=== PATIENT | female | born 1955 | race Caucasian/White ===

== ENCOUNTER 2020-02-10 10:53 | Day surgery (SDC) | payer BC, OTHER ==
[2020-02-10] MEDS ORDERED: Lidocaine 2% 5 ML SDV INJECT ONE (12:00)
[2020-02-10] MEDS ORDERED: Iopamidol 200-M 10 ML vial ITHECAL ONE (12:00)
[2020-02-10] MEDS ORDERED: Betamethasone Acetate/Betamethasone Sod Phosphate 30 MG/5 ML MDV EPIDUR ONE (12:00)
[2020-02-10] MEDS ORDERED: Ropivacaine 0.5% 5 MG/ML 30 ML SDV INJECT ONE (12:00)
--- NOTE | 2020-02-10 16:55 | OR ---
SURGEON: Ruth Mata D.O. DATE OF PROCEDURE: 02/10/2020 PRIMARY SURGEON: Ruth Mata D.O. ASSISTANTS: OR staff present: 1. Selam Lovell RN. 2. Vicki Figueroa RN. 3. Flash Rodriguez, RT. PREOPERATIVE DIAGNOSES: 1. Right lumbosacral radiculopathy. 2. Lumbar degenerative joint disease. 3. Lumbar spondylosis. 4. Chronic low back pain. POSTOPERATIVE DIAGNOSES: 1. Right lumbosacral radiculopathy. 2. Lumbar degenerative joint disease. 3. Lumbar spondylosis. 4. Chronic low back pain. PROCEDURES PERFORMED: 1. Right S1 transforaminal epidural steroid injection. 2. Fluoroscopic guidance for needle placement. 3. Local with oral Valium for sedation. SCREENING QUESTIONS: The patient answered "no" to all of the following questions: 1. Are you allergic to iodine, Betadine or latex? 2. Do you have a bleeding disorder? 3. Do you have any joint replacements, heart valve replacements, or a pacemaker? 4. Are you allergic to anti-inflammatories or blood thinners? 5. Do you have any current local or systemic infections? MEDICAL NECESSITY: This is a patient with a history of chronic low back pain and lower extremity radicular pain in the above dermatomal pattern that comes in for the above diagnostic and therapeutic procedure. Pertinent positives and negatives for this suspected disease process along with the diagnostic findings and testing are in the patient's history and physical exam. The most salient feature includes radicular pain in the above dermatomal pattern. The patient had failed attempts at conservative therapy including physical therapy, nonsteroidal anti- inflammatory drugs, and other medications. No contraindications to perform this procedure including medical, no bleeding disorders or infections, no psychological, no antisocial personality disorder or active addiction disorder. There are no work-related issues, and, in general, the patient does not have any history of multiple prior interventions, surgeries or nerve blocks which have failed to return the patient to function. The patient's other symptoms to be treated include numbness, paresthesia, dysesthesia or hypoesthesia referred into the left lower extremity or any weakness in the involved myotome. This procedure is being performed in accordance with national guidelines as written by the [employer] (CESIA). DESCRIPTION OF PROCEDURE: The patient had the procedure thoroughly explained including risks, benefits and alternatives. Consent was signed in my clinic indicating understanding and willingness to proceed. The patient presented to [facility] [place] where the patient was escorted to the dressing room to disrobe and change into a hospital gown. Preoperative vital signs were taken and stable. The patient reported that Valium was taken prior to the procedure. The patient was brought to the procedure room and placed in the prone position on the table. A pillow was placed under the abdomen in order to flatten the lumbar lordosis. The back was prepped with ChloraPrep and sterilely draped. All personnel in the operating room were dressed in appropriate attire including surgical scrubs, head and shoe covers. This was to ensure sterility while in the treatment room. During the time fluoroscopy was in use, all personnel in the operating room wore lead larose with thyroid collars. Sterile technique was used during the procedure. The fluoroscope was placed for the right S1 transforaminal epidural steroid injection. There was no sign of infection at the skin site for needle insertion. The skin was anesthetized with 2% lidocaine with a 27 gauge 1-1/2 inch needle. Then a 22 gauge 3-1/2 inch spinal needle, advanced to the right S1. Under direct fluoroscopic guidance needle position was verified in three views; AP, oblique and lateral, with 0.2 cubic centimeters increments of Isovue- 200 dye. No intravascular flow pattern was observed under live fluoroscopy. Then 12 milligrams of Celestone was slowly injected after negative aspiration of heme, cerebrospinal fluid and no paresthesias were noted. The needle was cleared prior to removal from the skin. No adverse reactions were noted. The patient was brought to the recovery room awake and in good condition by my staff. The patient was monitored and discharge instructions were given after a brief stay in the recovery area. Both oral and written discharge and follow up instructions were given. The patient will follow up in the clinic in 3-4 weeks post procedure to evaluate the efficacy. The patient verbalized understanding including understanding of those signs and symptoms that would require emergency care and knows how to contact the office if there are any problems or questions in the meantime. PREOPERATIVE PAIN: 10. POSTOPERATIVE PAIN: 05/07. FOLLOWUP: In the Pain Clinic in 3 weeks. HOGLCHR / MODL /[id number]
== END 2020-02-10 13:14 ==
LOC: MW.SDS 10:53
PROVIDERS: ATTEND Anesthesiology
DX: G89.29 Other chronic pain (principal); M47.26 Other spondylosis with radiculopathy, lumbar region; M51.16 Intervertebral disc disorders with radiculopathy, lumbar region; M79.18 Myalgia, other site; M51.17 Intervertebral disc disorders with radiculopathy, lumbosacral region; M41.9 Scoliosis, unspecified; M51.34 Other intervertebral disc degeneration, thoracic region; Z88.2 Allergy status to sulfonamides; Z88.8 Allergy status to other drugs, medicaments and biological substances; Z79.899 Other long term (current) drug therapy
CPT/HCPCS: 64483; J0702; J2001; J2795; Q9966

== ENCOUNTER 2020-04-06 11:08 | Day surgery (SDC) | payer OTHER, MEDICARE ==
[2020-04-06] MEDS ORDERED: Betamethasone Acetate/Betamethasone Sod Phosphate 30 MG/5 ML MDV EPIDUR ONE (12:00)
[2020-04-06] MEDS ORDERED: Iopamidol 200-M 10 ML vial ITHECAL ONE (12:00)
[2020-04-06] MEDS ORDERED: Lidocaine 2% 5 ML SDV INJECT ONE (12:00)
[2020-04-06] MEDS ORDERED: Ropivacaine 0.5% 5 MG/ML 30 ML SDV INJECT ONE (12:00)
--- NOTE | 2020-04-06 20:31 | OR ---
SURGEON: Ruth Mata D.O. DATE OF PROCEDURE: 04/06/2020 OUTSIDE CUTTER HAND: OR staff present: 1. Flash Cha RN. 2. Vicki Figueroa RN. 3. Flash Rodriguez RT. WOUND CLASS: I. PREOPERATIVE DIAGNOSES: 1. Lumbar L5-S1 degenerative disk disease. 2. Right lower extremity radiculopathy. POSTOPERATIVE DIAGNOSES: 1. Lumbar L5-S1 degenerative disk disease. 2. Right lower extremity radiculopathy. PROCEDURES PERFORMED: 1. Right S1 transforaminal epidural steroid injection. 2. Fluoroscopic guidance for needle placement. 3. Local with oral Valium for sedation. SCREENING QUESTIONS: The patient answered "no" to all of the following questions: 1. Are you allergic to iodine, Betadine or latex? 2. Do you have a bleeding disorder? 3. Do you have any joint replacements, heart valve replacements, or a pacemaker? 4. Are you allergic to anti-inflammatories or blood thinners? 5. Do you have any current local or systemic infections? DESCRIPTION OF PROCEDURE: The patient had the procedure thoroughly explained including risks, benefits and alternatives. Consent was signed in my clinic indicating understanding and willingness to proceed. The patient presented to [facility] [place] where the patient was escorted to the dressing room to disrobe and change into a hospital gown. Preoperative vital signs were taken and stable. The patient reported that Valium was taken prior to the procedure. The patient was brought to the procedure room and placed in the prone position on the table. A pillow was placed under the abdomen in order to flatten the lumbar lordosis. The back was prepped with ChloraPrep and sterilely draped. All personnel in the operating room were dressed in appropriate attire including surgical scrubs, head and shoe covers. This was to ensure sterility while in the treatment room. During the time fluoroscopy was in use, all personnel in the operating room wore lead larose with thyroid collars. Sterile technique was used during the procedure. The fluoroscope was placed for the S1 transforaminal epidural steroid injection. There was no sign of infection at the skin site for needle insertion. The skin was anesthetized with 2% lidocaine with a 27 gauge 1-1/2 inch needle. Then a 22 gauge 3-1/2 inch spinal needle, advanced to the right S1 foramen. Under direct fluoroscopic guidance needle position was verified in three views; AP, oblique and lateral, with 0.2 cubic centimeters increments of Isovue-200 dye. No intravascular flow pattern was observed under live fluoroscopy.Then 12 milligrams of Celestone and local was slowly injected after negative aspiration of heme, cerebrospinal fluid and no paresthesias were noted. The needle was cleared prior to removal from the skin. No adverse reactions were noted. The patient was brought to the recovery room awake and in good condition by my staff. The patient was monitored and discharge instructions were given after a brief stay in the recovery area. Both oral and written discharge and follow up instructions were given. The patient will follow up in the clinic in 3-4 weeks post procedure to evaluate the efficacy. The patient verbalized understanding including understanding of those signs and symptoms that would require emergency care and knows how to contact the office if there are any problems or questions in the meantime. PREOPERATIVE PAIN: 5/10. POSTOPERATIVE PAIN: 0/10. PLAN: Follow up in the pain clinic in 3 weeks. PIERRE / KRYSTAL /[id number]
== END 2020-04-06 13:03 ==
LOC: MW.SDS 11:08
PROVIDERS: ATTEND Anesthesiology
DX: M51.17 Intervertebral disc disorders with radiculopathy, lumbosacral region (principal); M51.16 Intervertebral disc disorders with radiculopathy, lumbar region; M47.26 Other spondylosis with radiculopathy, lumbar region; M79.18 Myalgia, other site; M41.9 Scoliosis, unspecified; Z88.2 Allergy status to sulfonamides; Z88.8 Allergy status to other drugs, medicaments and biological substances; Z79.899 Other long term (current) drug therapy

== ENCOUNTER 2020-08-08 10:51 | Day surgery (SDC) | payer MEDICARE, OTHER ==
[2020-08-08] MEDS ORDERED: Betamethasone Acetate/Betamethasone Sod Phosphate 30 MG/5 ML MDV EPIDUR ONE (12:30)
[2020-08-08] MEDS ORDERED: Ropivacaine 0.5% 5 MG/ML 30 ML SDV INJECT ONE (12:30)
[2020-08-08] MEDS ORDERED: Iopamidol 200-M 10 ML vial ITHECAL ONE (12:30)
[2020-08-08] MEDS ORDERED: Lidocaine 2% 5 ML SDV INJECT ONE (12:30)
--- NOTE | 2020-08-09 09:39 | OR ---
SURGEON: Ruth Mata D.O. DATE OF PROCEDURE: 08/08/2020 PRIMARY SURGEON: Ruth Mata D.O. BROWN SOURER: OR staff present: 1. Vicki Figueroa RN. 2. Selam Lovell RN. 3. Flash Rodriguez RT. WOUND CLASSS: I. PREOPERATIVE DIAGNOSES: 1. L3-4 disc protrusion. 2. L 3-4 BLE radicuopathy . 3. Scoliosis. 4. Chronic low back pain. POSTOPERATIVE DIAGNOSES: 1. L3-4 disc protrusion. 2. L3-4 BLE radiculopathy 3. Scoliosis. 4. Chronic low back pain. PROCEDURES PERFORMED: 1. Right transforaminal epidural steroid injection at L3. 2. Left transforaminal epidural steroid injection at L3. 3. Fluoroscopic guidance for needle placement. 4. Local with oral Valium for sedation. SCREENING QUESTIONS: The patient answered "no" to all of the following questions: 1. Are you allergic to iodine, Betadine or latex? 2. Do you have a bleeding disorder? 3. Do you have any joint replacements, heart valve replacements, or a pacemaker? 4. Are you allergic to anti-inflammatories or blood thinners? 5. Do you have any current local or systemic infections? DESCRIPTION OF PROCEDURE: The patient had the procedure thoroughly explained including risks, benefits and alternatives. Consent was signed in my clinic indicating understanding and willingness to proceed. The patient presented to [facility] [place] where the patient was escorted to the dressing room to disrobe and change into a hospital gown. Preoperative vital signs were taken and stable. The patient reported that Valium was taken prior to the procedure. The patient was brought to the procedure room and placed in the prone position on the table. A pillow was placed under the abdomen in order to flatten the lumbar lordosis. The back was prepped with ChloraPrep and sterilely draped. All personnel in the operating room were dressed in appropriate attire including surgical scrubs, head and shoe covers. This was to ensure sterility while in the treatment room. During the time fluoroscopy was in use, all personnel in the operating room wore lead larose with thyroid collars. Sterile technique was used during the procedure. The fluoroscope was placed for the right L3 transforaminal epidural steroid injection. There was no sign of infection at the skin site for needle insertion. The skin was anesthetized with 2% lidocaine with a 27 gauge 1-1/2 inch needle. Then a 22 gauge 3-1/2 inch spinal needle, advanced to the right foramen at the 6 oclock postion of the eye of the [place] Dog. Under direct fluoroscopic guidance needle position was verified in three views; AP, oblique and lateral, with 0.2 cubic centimeters increments of Isovue-200 dye. No intravascular flow pattern was observed under live fluoroscopy. Then 6 milligrams of Celestone and local was slowly injected after negative aspiration of heme, cerebrospinal fluid and no paresthesias were noted. The needle was cleared prior to removal from the skin. The procedure was repeated as above for the left L3 transforaminal epidural steriod injection No adverse reactions were noted. The patient was brought to the recovery room awake and in good condition by my staff. The patient was monitored and discharge instructions were given after a brief stay in the recovery area. Both oral and written discharge and follow up instructions were given. The patient will follow up in the clinic in 3-4 weeks post procedure to evaluate the efficacy. The patient verbalized understanding including understanding of those signs and symptoms that would require emergency care and knows how to contact the office if there are any problems or questions in the meantime. PREOPERATIVE PAIN: 6/10. POSTOPERATIVE PAIN: 2/10. PLAN: Followup in the pain clinic in 3 weeks. PIERRE / KRYSTAL /[id number]
== END 2020-08-08 12:50 ==
LOC: MW.SDS 10:51
PROVIDERS: ATTEND Anesthesiology
DX: G89.29 Other chronic pain (principal); M51.16 Intervertebral disc disorders with radiculopathy, lumbar region; M41.9 Scoliosis, unspecified; M51.17 Intervertebral disc disorders with radiculopathy, lumbosacral region; M51.14 Intervertebral disc disorders with radiculopathy, thoracic region; M47.26 Other spondylosis with radiculopathy, lumbar region; M79.18 Myalgia, other site; Z01.812 Encounter for preprocedural laboratory examination; Z20.822 Contact with and (suspected) exposure to COVID-19; Z88.2 Allergy status to sulfonamides; Z88.8 Allergy status to other drugs, medicaments and biological substances; Z88.1 Allergy status to other antibiotic agents; Z79.899 Other long term (current) drug therapy
CPT/HCPCS: 64483; J0702; J2795; Q9966; U0002